=== PATIENT | male | born 1940 | race Caucasian/White ===

== ENCOUNTER 2023-06-21 13:00 | Inpatient (IN) | payer MEDICARE ==
[~2023-06-21] VITALS: Ht 175.3 cm; Wt 72.6 kg
[2023-06-21] MEDS ORDERED: ACET-868 PO (13:26)
[2023-06-21] MEDS ORDERED: PETR113O TP (13:26)
[2023-06-21] MEDS ORDERED: GLUC1KIT IM (13:26)
[2023-06-21] MEDS ORDERED: INSU100V39 SQ ×2 (13:26)
[2023-06-21] MEDS ORDERED: NEOM28.43 TP (13:26)
[2023-06-21] MEDS ORDERED: MELA5TAB PO (13:26)
[2023-06-21] MEDS ORDERED: CHOL-9 PO (13:26)
[2023-06-21] MEDS ORDERED: NYST500P2 TP (13:26)
[2023-06-21] MEDS ORDERED: ASCO-340 PO (13:26)
[2023-06-21] MEDS ORDERED: ZINC1CAP3 PO (13:26)
[2023-06-21] MEDS ORDERED: VALP250S4 PO (13:26)
[2023-06-21] MEDS ORDERED: BENZ1LOZ58 PO (13:26)
[2023-06-21] MEDS ORDERED: TRIA80CR12 TP (13:26)
[2023-06-21] MEDS ORDERED: FOLI0.8T2 PO (13:26)
[2023-06-21] MEDS ORDERED: CYAN-51 PO (13:26)
[2023-06-21] MEDS ORDERED: OLAN2.5T3 PO (13:26)
[2023-06-21] MEDS ORDERED: CALAZIME PASTE TP (13:26)
[2023-06-21] MEDS ORDERED: GUAIFENESIN PO (13:26)
[2023-06-21] MEDS ORDERED: NUTR1PAC14 PO (13:26)
[2023-06-21 14:08] LABS: ACETAMINOPHEN < 10 ug/ml (10-30); ALANINE AMINOTRANSFERASE 60 U/L (12-78); ALBUMIN 2.3 g/dL (3.4-5.0); ALCOHOL, BLOOD < 3 mg/dL (0-10); ALKALINE PHOSPHATASE 129 U/L (46-116); ASPARTATE AMINOTRANSFERASE 84 U/L (15-37); BILIRUBIN,DIRECT 0.2 mg/dL (0.0-0.2); BILIRUBIN,TOTAL 0.5 mg/dL (0.2-1.0); CALCIUM, SERUM 8.5 mg/dL (8.5-10.1); CARBON DIOXIDE 27 mmol/L (21-32); CHLORIDE 105 mmol/L (98-107); CREATININE 1.2 mg/dL (0.6-1.3); GLUCOSE 98 mg/dL (74-106); POTASSIUM 3.6 mmol/L (3.5-5.1); SODIUM SERUM 140 mmol/L (136-145); UREA NITROGEN, BLOOD 16 mg/dL (7-18)
[2023-06-21 14:09] LABS: BASOPHILS % (AUTO) 0.8 % (0.0-2.0); EOSINOPHILS # (AUTO) 0.3 K/uL (0.0-0.7); EOSINOPHILS % (AUTO) 8.2 % (0.0-6.0); HEMATOCRIT 31 % (39-51); HEMOGLOBIN 10.8 g/dL (13.5-17.5); LYMPHOCYTES % (AUTO) 29.5 % (20.0-44.0); MEAN CORPUSCULAR HEMOGLOBIN 34 PG (26.0-33.0); MEAN CORPUSCULAR HGB CONC 35 g/dl (31.0-36.0); MEAN CORPUSCULAR VOLUME 98 fL (80-96); MONOCYTES # (AUTO) 0.7 K/uL (0.1-1.30); MONOCYTES % (AUTO) 20.8 % (2.0-12.0); NEUTROPHILS # (AUTO) 1.3 K/uL (1.8-8.9); NEUTROPHILS % (AUTO) 40.7 % (43.0-81.0); PLATELET COUNT (AUTO) 219 K/uL (150-450); RED BLOOD CELL COUNT(AUTO) 3.17 MIL/uL (4.5-6.0); RED CELL DISTRIBUTION WIDTH 15.4 % (11.5-15.0); WHITE BLOOD COUNT (AUTO) 3.2 K/uL (4.3-11.0)
[2023-06-21 14:12] LABS: SALICYLATE < 0.2 mg/dL (2.8-20.0)
[2023-06-21 15:08] LABS: APPEARANCE,URINE CLEAR (CLEAR); BILIRUBIN,URINE NEGATIVE (NEGATIVE); BLOOD, URINE NEGATIVE Ery/uL (NEGATIVE); COLOR,URINE YELLOW (YELLOW); KETONES,URINE TRACE mg/dL (NEGATIVE); LEUKOCYTE ESTERASE ,URINE NEGATIVE (NEGATIVE); NITRITE, URINE NEGATIVE (NEGATIVE); PH,URINE 5.5 (5.0-8.0); PROTEIN,URINE TRACE mg/dl (NEGATIVE); UGLUCOSE NEGATIVE (NEGATIVE); UROBILINOGEN,URINE 0.2 EU/dL (0.2)
[2023-06-21 15:24] LABS: AMPHETAMINE, URINE NEGATIVE (NEGATIVE); BARBITURATE, URINE NEGATIVE (NEGATIVE); BENZODIAZEPINE, URINE NEGATIVE (NEGATIVE); CANNABINOID, URINE NEGATIVE (NEGATIVE); COCCAINE, URINE NEGATIVE (NEGATIVE); OPIATE, URINE NEGATIVE (NEGATIVE); PHENCYCLIDINE SCREEN,URINE NEGATIVE (NEGATIVE)
[2023-06-21 16:00] LABS: ADD URINE CULTURE NO; BACTERIA,URINE n /HPF (None Seen); RBC,URINE 0-2 /HPF (0-2); SQUAMOUS EPITHELIAL CELL,UR 0-2 /HPF (None Seen); WBC,URINE 0-2 /HPF (0-3)
[2023-06-21 16:01] LABS: MUCUS,URINE Few /LPF (None Seen)
[2023-06-21 17:07] LABS: ANISOCYTOSIS 1+; EOSINOPHILS % (MANUAL) 9 % (0-4); LYMPHOCYTES % (MANUAL) 27 % (16-48); MONOCYTES % (MANUAL) 10 % (0-11.0); NEUTROPHILS % (MANUAL) 53 (42-76); PLATELET ESTIMATE ADEQU; REACTIVE LYMPHOCYTES 1 % (0-0); ROULEAUX 1+
[2023-06-21] MEDS ORDERED: MAGNESIUM HYDROXIDE 30 ML UDC PO PRN (18:00)
[2023-06-21] MEDS ORDERED: ACETAMINOPHEN 325 MG TABLET PO PRN (18:00)
[2023-06-21] MEDS ORDERED: MAG HYDROX/AL HYDROX/SIMETH 30 ML UDC PO PRN (18:00)
[2023-06-21] MEDS ORDERED: MENTHOL/CETYLPYRD (CEPACOL) 1 LOZ LOZENGE PO PRN (19:00)
[2023-06-21] MEDS ORDERED: DEXTROSE 50%-WATER 50 ML DISP.SYRIN IV PRN (19:00)
[2023-06-21] MEDS ORDERED: GUAIFENESIN 300 MG/15 ML UDC PO PRN (19:00)
[2023-06-21] MEDS ORDERED: GLUCAGON,HUMAN RECOMBINANT 1 MG/VIAL VIAL IM PRN (19:00)
[2023-06-21] MEDS: CHOLECALCIFEROL (VITAMIN D 3) 400 UNIT TABLET PO SCH (19:52)
[2023-06-21 20:08] VITALS: BP 118/71; TEMP 97.6; O2SAT 97
[2023-06-21] MEDS: LORAZEPAM 0.5 MG TABLET PO PRN (20:48)
[2023-06-21] MEDS: BLOOD SUGAR DIAGNOSTIC 1 EACH STRIP IN ONE (20:56)
[2023-06-21] MEDS: BLOOD SUGAR DIAGNOSTIC 1 EACH STRIP IN SCH (21:18)
[2023-06-21] MEDS ORDERED: Medication Not On Formulary EA (Melatonin 10 MG) PO SCH (22:00)
[2023-06-21] MEDS: TEMAZEPAM 7.5 MG CAPSULE PO PRN (22:10)
[2023-06-22] MEDS: TRIAMCINOLONE ACETONIDE 0.1% CR 15 GM TUBE TP SCH (06:52)
[2023-06-22] MEDS: NYSTATIN TOP POWDER 15 GM BOTTLE TP SCH (06:52)
[2023-06-22 08:00] VITALS: BP 118/58; TEMP 97.8; O2SAT 97
[2023-06-22] MEDS ORDERED: VALPROIC ACID 250 MG/5 ML UDC PO SCH (09:00)
[2023-06-22] MEDS: ZINC SULFATE 220 MG CAPSULE PO SCH (09:19)
[2023-06-22] MEDS: VIT B CMPLX 3/FA/VIT C/BIOTIN 1 TAB TABLET PO SCH (09:19)
[2023-06-22] MEDS: ASCORBIC ACID 500 MG TABLET PO SCH (09:19)
[2023-06-22] MEDS: CYANOCOBALAMIN 500 MCG TABLET PO SCH (09:19)
[2023-06-22] MEDS: ARGININE/GLUTAMINE/CALCIUM BMB 1 EACH POWD.PACK PO SCH (09:20)
[2023-06-22] MEDS: NEOMY SULF/BACITRAC ZN/POLY 15 GM TUBE TP SCH (09:20)
[2023-06-22] MEDS: INSULIN REGULAR, HUMAN 100 UNIT/ML 3 ML VIAL SQ PRN (11:49)
[2023-06-22] MEDS: OLANZAPINE 10 MG VIAL IM ONE ×2 (14:00→23:03)
[2023-06-22 16:00] VITALS: BP 85/60; TEMP 97.8; O2SAT 100
[2023-06-22 19:55] LABS: ALANINE AMINOTRANSFERASE 69 U/L (12-78); ALBUMIN 2.1 g/dL (3.4-5.0); ALKALINE PHOSPHATASE 129 U/L (46-116); ASPARTATE AMINOTRANSFERASE 88 U/L (15-37); BILIRUBIN,TOTAL 0.4 mg/dL (0.2-1.0); CALCIUM, SERUM 8.2 mg/dL (8.5-10.1); CARBON DIOXIDE 26 mmol/L (21-32); CHLORIDE 104 mmol/L (98-107); CREATININE 1.2 mg/dL (0.6-1.3); GLUCOSE 131 mg/dL (74-106); POTASSIUM 3.8 mmol/L (3.5-5.1); SODIUM SERUM 136 mmol/L (136-145); TOTAL PROTEIN, SERUM 5.7 g/dL (6.4-8.2); UREA NITROGEN, BLOOD 20 mg/dL (7-18)
[2023-06-22 20:03] LABS: THYROID STIMULATING HORMONE 5.871 uIU/mL (0.358-3.74)
[2023-06-22] MEDS: OLANZAPINE 2.5 MG TABLET PO SCH (20:04)
[2023-06-22 21:15] VITALS: BP 116/67; TEMP 98.1; O2SAT 99
[2023-06-23] MEDS: ACETAMINOPHEN 325 MG TABLET PO PRN (02:30)
[2023-06-23 08:00] VITALS: BP 137/85; TEMP 98.7; O2SAT 99
[2023-06-23] MEDS: OLANZAPINE 2.5 MG TABLET PO SCH (09:15)
[2023-06-23 16:00] VITALS: BP 110/72; TEMP 97.9; O2SAT 96
[2023-06-23 20:07] VITALS: BP 120/61; TEMP 98; O2SAT 97
[2023-06-24 08:00] VITALS: BP 119/63; TEMP 97.7; O2SAT 94
[2023-06-24] MEDS: OLANZAPINE 2.5 MG TABLET PO SCH (13:04)
[2023-06-24 16:00] VITALS: BP 110/69; TEMP 98; O2SAT 98
[2023-06-25 08:00] VITALS: BP 116/74; TEMP 97.6; O2SAT 94
[2023-06-25] MEDS: diphenhydrAMINE HCL 50 MG/ML VIAL IM ONE (09:04)
[2023-06-25] MEDS: HALOPERIDOL LACTATE INJ 5 MG/ML VIAL IM ONE (09:04)
[2023-06-25 12:44] LABS: BASOPHILS # (AUTO) 0.1 K/uL (0.0-0.2); BASOPHILS % (AUTO) 0.9 % (0.0-2.0); EOSINOPHILS # (AUTO) 0.1 K/uL (0.0-0.7); EOSINOPHILS % (AUTO) 1.3 % (0.0-6.0); HEMATOCRIT 32 % (39-51); HEMOGLOBIN 10.9 g/dL (13.5-17.5); LYMPHOCYTES # (AUTO) 0.8 K/uL (0.8-4.8); LYMPHOCYTES % (AUTO) 12.1 % (20.0-44.0); MEAN CORPUSCULAR HEMOGLOBIN 34 PG (26.0-33.0); MEAN CORPUSCULAR HGB CONC 34 g/dl (31.0-36.0); MEAN CORPUSCULAR VOLUME 100 fL (80-96); MONOCYTES # (AUTO) 0.9 K/uL (0.1-1.30); MONOCYTES % (AUTO) 13.2 % (2.0-12.0); NEUTROPHILS # (AUTO) 4.8 K/uL (1.8-8.9); NEUTROPHILS % (AUTO) 72.5 % (43.0-81.0); PLATELET COUNT (AUTO) 240 K/uL (150-450); RED BLOOD CELL COUNT(AUTO) 3.19 MIL/uL (4.5-6.0); RED CELL DISTRIBUTION WIDTH 15.6 % (11.5-15.0); WHITE BLOOD COUNT (AUTO) 6.7 K/uL (4.3-11.0)
[2023-06-25 13:00] LABS: SERUM AMMONIA 6 umol/L (11-32)
[2023-06-25] MEDS: risperiDONE 1 MG TABLET PO SCH ×2 (13:00→22:00)
[2023-06-25 13:06] LABS: ALANINE AMINOTRANSFERASE 87 U/L (12-78); ALBUMIN 2.8 g/dL (3.4-5.0); ALKALINE PHOSPHATASE 146 U/L (46-116); ASPARTATE AMINOTRANSFERASE 104 U/L (15-37); CALCIUM, SERUM 8.8 mg/dL (8.5-10.1); CARBON DIOXIDE 25 mmol/L (21-32); CHLORIDE 101 mmol/L (98-107); CREATININE 2.1 mg/dL (0.6-1.3); GLUCOSE 158 mg/dL (74-106); POTASSIUM 4.2 mmol/L (3.5-5.1); SODIUM SERUM 137 mmol/L (136-145); TOTAL PROTEIN, SERUM 7.1 g/dL (6.4-8.2); UREA NITROGEN, BLOOD 38 mg/dL (7-18)
[2023-06-25 16:00] VITALS: BP 104/79; TEMP 97.8; O2SAT 96
[2023-06-26 08:00] VITALS: BP 123/72; TEMP 97.5; O2SAT 99
[2023-06-26 16:00] VITALS: BP 108/50; TEMP 98.6; O2SAT 98
[2023-06-26 20:00] VITALS: BP 131/74; TEMP 97.8; O2SAT 98
[2023-06-27 08:00] VITALS: BP 108/72; TEMP 97.6; O2SAT 94
[2023-06-27] MEDS: diphenhydrAMINE HCL 50 MG/ML VIAL IM STA (09:46)
[2023-06-27] MEDS: HALOPERIDOL LACTATE INJ 5 MG/ML VIAL IM ONE (09:46)
[2023-06-27 16:00] VITALS: BP 103/69; TEMP 97.8; O2SAT 94
[2023-06-27 20:57] VITALS: BP 110/81; TEMP 98.1; O2SAT 99
[2023-06-28 08:00] VITALS: BP 139/79; TEMP 97.8; O2SAT 100
[2023-06-28] MEDS: GLUCERNA SHAKE 237 ML CAN PO SCH (08:53)
[2023-06-28 15:08] LABS: BASOPHILS % (AUTO) 0.5 % (0.0-2.0); EOSINOPHILS # (AUTO) 0.3 K/uL (0.0-0.7); EOSINOPHILS % (AUTO) 9.1 % (0.0-6.0); HEMATOCRIT 28 % (39-51); HEMOGLOBIN 9.4 g/dL (13.5-17.5); LYMPHOCYTES % (AUTO) 28.5 % (20.0-44.0); MEAN CORPUSCULAR HEMOGLOBIN 34 PG (26.0-33.0); MEAN CORPUSCULAR HGB CONC 34 g/dl (31.0-36.0); MEAN CORPUSCULAR VOLUME 100 fL (80-96); MONOCYTES # (AUTO) 0.6 K/uL (0.1-1.30); MONOCYTES % (AUTO) 17.4 % (2.0-12.0); NEUTROPHILS # (AUTO) 1.5 K/uL (1.8-8.9); NEUTROPHILS % (AUTO) 44.5 % (43.0-81.0); PLATELET COUNT (AUTO) 216 K/uL (150-450); RED BLOOD CELL COUNT(AUTO) 2.77 MIL/uL (4.5-6.0); RED CELL DISTRIBUTION WIDTH 15.2 % (11.5-15.0); WHITE BLOOD COUNT (AUTO) 3.4 K/uL (4.3-11.0)
[2023-06-28 15:17] LABS: CALCIUM, SERUM 8.6 mg/dL (8.5-10.1); CARBON DIOXIDE 26 mmol/L (21-32); CHLORIDE 106 mmol/L (98-107); CREATININE 1.4 mg/dL (0.6-1.3); GLUCOSE 119 mg/dL (74-106); SODIUM SERUM 139 mmol/L (136-145); UREA NITROGEN, BLOOD 30 mg/dL (7-18)
[2023-06-28 15:27] LABS: ALANINE AMINOTRANSFERASE 62 U/L (12-78); ALBUMIN 2.3 g/dL (3.4-5.0); ALKALINE PHOSPHATASE 121 U/L (46-116); ASPARTATE AMINOTRANSFERASE 71 U/L (15-37); BILIRUBIN,TOTAL 0.6 mg/dL (0.2-1.0); MAGNESIUM 1.4 mg/dL (1.8-2.4); PHOSPHORUS 4.1 mg/dL (2.5-4.9)
[2023-06-28 16:00] VITALS: BP 132/59; TEMP 97.9; O2SAT 98
[2023-06-28 16:20] LABS: ANISOCYTOSIS 1+; EOSINOPHILS % (MANUAL) 8 % (0-4); LYMPHOCYTES % (MANUAL) 23 % (16-48); MONOCYTES % (MANUAL) 9 % (0-11.0); NEUTROPHILS % (MANUAL) 60 (42-76); PLATELET ESTIMATE ADEQUATE; ROULEAUX 1+
[2023-06-28 17:53] LABS: APPEARANCE,URINE CLEAR (CLEAR); BILIRUBIN,URINE NEGATIVE (NEGATIVE); BLOOD, URINE NEGATIVE Ery/uL (NEGATIVE); COLOR,URINE YELLOW (YELLOW); KETONES,URINE NEGATIVE (NEGATIVE); LEUKOCYTE ESTERASE ,URINE NEGATIVE (NEGATIVE); NITRITE, URINE NEGATIVE (NEGATIVE); PROTEIN,URINE TRACE mg/dl (NEGATIVE); UGLUCOSE NEGATIVE (NEGATIVE); UROBILINOGEN,URINE 0.2 EU/dL (0.2)
[2023-06-28 18:07] LABS: ADD URINE CULTURE NO; BACTERIA,URINE None seen /HPF (None Seen); MUCUS,URINE Few /LPF (None Seen); RBC,URINE 0-2 /HPF (0-2); WBC,URINE 0-2 /HPF (0-3)
[2023-06-28 21:46] VITALS: BP_SYST 115; BP_DIAS 57; BP_DIAS 67; TEMP 98.2; O2SAT 96
[2023-06-29 08:00] VITALS: BP 119/68; TEMP 98.6; O2SAT 97
[2023-06-29] MEDS: MAGNESIUM OXIDE 400 MG TABLET PO SCH (11:09)
[2023-06-29 16:00] VITALS: BP 108/67; TEMP 98.1; O2SAT 97
[2023-06-29 20:15] VITALS: BP 103/62; TEMP 97.9; O2SAT 97
[2023-06-30 08:00] VITALS: BP 108/68; TEMP 97.9; O2SAT 98
[2023-06-30 16:00] VITALS: BP 106/61; TEMP 98; O2SAT 97
[2023-06-30 20:32] VITALS: BP 103/57; TEMP 98.2; O2SAT 98
[2023-06-30 22:00] VITALS: BP 119/69; TEMP 98; O2SAT 98
[2023-07-01 07:45] LABS: BASOPHILS % (AUTO) 1.2 % (0.0-2.0); EOSINOPHILS # (AUTO) 0.3 K/uL (0.0-0.7); HEMATOCRIT 29 % (39-51); LYMPHOCYTES # (AUTO) 1.1 K/uL (0.8-4.8); LYMPHOCYTES % (AUTO) 27.7 % (20.0-44.0); MEAN CORPUSCULAR HEMOGLOBIN 35 PG (26.0-33.0); MEAN CORPUSCULAR HGB CONC 35 g/dl (31.0-36.0); MEAN CORPUSCULAR VOLUME 99 fL (80-96); MONOCYTES # (AUTO) 0.6 K/uL (0.1-1.30); MONOCYTES % (AUTO) 15.4 % (2.0-12.0); NEUTROPHILS # (AUTO) 1.9 K/uL (1.8-8.9); NEUTROPHILS % (AUTO) 48.7 % (43.0-81.0); PLATELET COUNT (AUTO) 242 K/uL (150-450); RED BLOOD CELL COUNT(AUTO) 2.88 MIL/uL (4.5-6.0); WHITE BLOOD COUNT (AUTO) 3.9 K/uL (4.3-11.0)
[2023-07-01 08:00] VITALS: BP 109/60; TEMP 97.9; O2SAT 96
[2023-07-01 08:40] LABS: ALANINE AMINOTRANSFERASE 48 U/L (12-78); ALBUMIN 2.2 g/dL (3.4-5.0); ALKALINE PHOSPHATASE 115 U/L (46-116); AMYLASE 57 U/L (25-115); ASPARTATE AMINOTRANSFERASE 53 U/L (15-37); BILIRUBIN,TOTAL 0.6 mg/dL (0.2-1.0); CALCIUM, SERUM 8.6 mg/dL (8.5-10.1); CARBON DIOXIDE 25 mmol/L (21-32); CHLORIDE 102 mmol/L (98-107); CREATININE 1.1 mg/dL (0.6-1.3); GLUCOSE 103 mg/dL (74-106); LIPASE 127 U/L (16-77); POTASSIUM 4.3 mmol/L (3.5-5.1); SODIUM SERUM 135 mmol/L (136-145); TOTAL PROTEIN, SERUM 5.6 g/dL (6.4-8.2); UREA NITROGEN, BLOOD 29 mg/dL (7-18)
[2023-07-01 08:46] LABS: SERUM AMMONIA 26 umol/L (11-32)
[2023-07-01] MEDS: Z GUARD REMEDY 4 OZ OINT TP SCH (08:58)
[2023-07-01 16:00] VITALS: BP 133/67; TEMP 97.9; O2SAT 98
[2023-07-01 20:00] VITALS: BP 139/89; TEMP 98.1; O2SAT 100
[2023-07-02 08:00] VITALS: BP 101/72; TEMP 98.9; O2SAT 95
[2023-07-02 16:00] VITALS: BP 103/71; TEMP 98; O2SAT 94
[2023-07-02 20:00] VITALS: BP 110/75; TEMP 98.7; O2SAT 99
[2023-07-02] MEDS: risperiDONE 1 MG TABLET PO SCH (22:04)
[2023-07-03 08:00] VITALS: BP 119/61; TEMP 98; O2SAT 94
[2023-07-03 16:00] VITALS: BP 105/68; TEMP 97.9; O2SAT 94
[2023-07-03 20:00] VITALS: BP 127/68; TEMP 98.1; O2SAT 96
[2023-07-04 08:00] VITALS: BP 100/57; TEMP 97.9; O2SAT 99
[2023-07-04 16:00] VITALS: BP 99/70; TEMP 97.5; O2SAT 100
[2023-07-04 20:44] VITALS: BP 89/64; TEMP 98.1; O2SAT 100
[2023-07-04 21:30] VITALS: BP 109/61; TEMP 98.2; O2SAT 99
[2023-07-05 08:00] VITALS: BP 109/62; TEMP 97.9; O2SAT 97
[2023-07-05 16:00] VITALS: BP 108/67; TEMP 98.4; O2SAT 99
[2023-07-05] MEDS: risperiDONE 1 MG TABLET PO SCH ×2 (17:33→21:23)
[2023-07-05 20:25] VITALS: BP 116/65; TEMP 98.4; O2SAT 99
[2023-07-06 08:00] VITALS: BP 124/82; TEMP 97.9; O2SAT 97
[2023-07-06 16:00] VITALS: BP 108/58; TEMP 97.7; O2SAT 100
[2023-07-06 21:28] VITALS: BP 105/56; TEMP 97.8; O2SAT 100
[2023-07-07 08:00] VITALS: BP 100/53; TEMP 98.1; O2SAT 99
[2023-07-07 16:00] VITALS: BP 130/79; TEMP 98.7; O2SAT 100
== END 2023-07-07 17:30 | DRG 885 ==
LOC: ER 13:05 → GPS 17:08
PROVIDERS: ADMIT Psychiatry & Neurology Psychosomatic Medicine; ATTEND Student in an Organized Health Care Education/Training Program
DX: F39 Unspecified mood [affective] disorder (principal); E44.0 Moderate protein-calorie malnutrition; F03.93 Unspecified dementia, unspecified severity, with mood disturbance; F29 Unspecified psychosis not due to a substance or known physiological condition; D63.8 Anemia in other chronic diseases classified elsewhere; E83.42 Hypomagnesemia; F20.9 Schizophrenia, unspecified; I10 Essential (primary) hypertension; Z79.4 Long term (current) use of insulin; Z87.828 Personal history of other (healed) physical injury and trauma; Z68.23 Body mass index [BMI] 23.0-23.9, adult; Z79.899 Other long term (current) drug therapy; Z20.822 Contact with and (suspected) exposure to COVID-19; E11.9 Type 2 diabetes mellitus without complications
CPT/HCPCS: 36415; 76770-TC; 80048-TC; 80053-TC; 80061-TC; 80076-TC; 81001; 82140-TC; 82150-TC; 82607-TC; 82962-TC; 83690-TC; 83735-TC; 84100-TC; 84443-TC; 85025-TC; 97110-TC; 97112-TC; 97116-TC; 97530-TC; G0480; J1200; J1630; J1815; J3490